=== PATIENT | male | born 1955 | race Caucasian/White ===

== ENCOUNTER 2022-02-20 13:51 | Inpatient (IN) | payer MEDICARE ==
[~2022-02-20] VITALS: Ht 180.3 cm; Wt 97.5 kg
[2022-02-20 15:55] LABS: BASOPHILS ABSOLUTE AUTO 0.03 K/mm3 (0.00-0.23); BASOPHILS PERCENT AUTO 0 % (0-2); EOSINOPHILS ABSOLUTE AUTO 0.26 K/mm3 (0.00-0.68); EOSINOPHILS PERCENT AUTO 3 % (0-6); Hematocrit 50.9 % (37.0-53.0); Hemoglobin 17.4 g/dL (13.5-17.5); IMMATURE GRAN ABSOLUTE AUTO 0.02 K/mm3 (0.00-0.10); IMMATURE GRAN PERCENT AUTO 0 % (0-1); LYMPHOCYTES ABSOLUTE AUTO 0.52 K/mm3 (0.84-5.20); LYMPHOCYTES PERCENT AUTO 6 % (21-46); MONOCYTES ABSOLUTE AUTO 0.89 K/mm3 (0.16-1.47); MONOCYTES PERCENT AUTO 10 % (4-13); Mean Corpuscular HGB 31.1 pg (26.0-34.0); Mean Corpuscular HGB Conc 34.2 g/dL (31.5-36.5); Mean Corpuscular Volume 91 fL (80-100); Mean Platelet Volume 9.2 fL (9.1-12.4); NEUTROPHILS ABSOLUTE AUTO 6.99 K/mm3 (1.96-9.15); NEUTROPHILS PERCENT AUTO 80 % (41-73); Platelet Count 161 K/mm3 (150-400); RDW Coefficient Variation 13.5 % (11.7-14.2); RDW Standard Deviation 45.8 fL (35.1-46.3); Red Blood Cell Count 5.59 M/mm3 (4.30-5.90); White Blood Cell Count 8.71 K/mm3 (4.00-11.30)
[2022-02-20 16:24] LABS: Albumin/Globulin Ratio 1.2 (0.8-1.8); Bilirubin, Total 1.5 mg/dL (0.1-1.0); Bun/Creatinine Ratio 17.1 (12.0-20.0); C-Reactive Protein, High Sens. 41.9 mg/L (0.000-3.000); Calcium, Blood 9.3 mg/dL (8.5-10.1); Creatinine, Blood 0.7 mg/dL (0.60-1.20); Globulin, Blood 3.3 g/dL (2.2-4.0); Potassium, Blood 3.9 mmol/L (3.5-5.5); Total Protein, Blood 7.3 g/dL (6.4-8.2)
[2022-02-20] MEDS ORDERED: GLYDO6 M2 MM (17:05)
[2022-02-20] MEDS ORDERED: FLOVENT HFA12 GM INH (22:08)
[2022-02-20] MEDS ORDERED: Tessalon200 MG PO (22:09)
[2022-02-20] MEDS ORDERED: RABE20 PO (22:09)
--- NOTE | 2022-02-21 00:18 | NUR ---
PATIENT ARRIVED TO MED FLOOR FROM ER SHORTLY AFTER SHIFT CHANGE. PATIENT IS ADMITTED FOR EPIGLOTITIS. HE IS UNABLE TO SWALLOW SPIT IN HIS MOUTH AND SUCTION IS HOOKED UP IN ROOM FOR PAITNET TO USE. HE HAS LR RUNNIING AT 100ML/HR. PATIENT IS INDEPENDANT IN ROOM AND ABLE TO MAKE HIS NEEDS KNOWN. HIS PULSE IS SLIGHTLY TACHY AT 98 TO 103. HE IS NPO AND SAYS SPOKE TO ENT WHILE HE WAS IN THE ER AND SHE WILL COME SEE HIM IN THE AM. SPOUSE ACCOMPANIED PATIENT TO ROOM AND ASSISTED IN ANSWERING HISTORY QUESTIONS FOR PATIENT. PATIENT WAS GIVEN TORADOL 30MG/IV ZOFRAN 4MG IV, AND HURRICANE GEL FOR HIS SORE THROAT. HE IS CURRENTLY RESTING COMFORTABLY WITH HOB AT 90 DEGREES. HE HAS WATER AT BEDSIDE THAT HE SWISHES HIS MOUTH OUT AND USES SUCTION TO REMOV ORDER FOR CONTINUOUS SAT MONITOR TO HELP IN MONITORING PATIENT INCASE THROAT CLOSES EVEN MORE.
[2022-02-21 06:42] LABS: BASOPHILS ABSOLUTE AUTO 0.01 K/mm3 (0.00-0.23); BASOPHILS PERCENT AUTO 0 % (0-2); EOSINOPHILS PERCENT AUTO 0 % (0-6); Hemoglobin 16.4 g/dL (13.5-17.5); IMMATURE GRAN ABSOLUTE AUTO 0.03 K/mm3 (0.00-0.10); IMMATURE GRAN PERCENT AUTO 0 % (0-1); LYMPHOCYTES ABSOLUTE AUTO 0.35 K/mm3 (0.84-5.20); LYMPHOCYTES PERCENT AUTO 5 % (21-46); MONOCYTES ABSOLUTE AUTO 0.33 K/mm3 (0.16-1.47); MONOCYTES PERCENT AUTO 4 % (4-13); Mean Corpuscular HGB 31.7 pg (26.0-34.0); Mean Corpuscular HGB Conc 34.2 g/dL (31.5-36.5); Mean Corpuscular Volume 93 fL (80-100); Mean Platelet Volume 9.5 fL (9.1-12.4); NEUTROPHILS ABSOLUTE AUTO 6.97 K/mm3 (1.96-9.15); NEUTROPHILS PERCENT AUTO 91 % (41-73); Platelet Count 135 K/mm3 (150-400); RDW Coefficient Variation 13.2 % (11.7-14.2); RDW Standard Deviation 45.3 fL (35.1-46.3); Red Blood Cell Count 5.18 M/mm3 (4.30-5.90); White Blood Cell Count 7.69 K/mm3 (4.00-11.30)
[2022-02-21 06:49] LABS: Bun/Creatinine Ratio 22.2 (12.0-20.0); Calcium, Blood 8.7 mg/dL (8.5-10.1); Creatinine, Blood 0.63 mg/dL (0.60-1.20); Potassium, Blood 4.3 mmol/L (3.5-5.5)
[2022-02-21 13:01] LABS: Albumin, Blood 3.4 g/dL (3.4-5.0); Bilirubin, Direct 0.4 mg/dL (0.0-0.3); Bilirubin, Indirect 0.8 mg/dL (0.1-0.7); Bilirubin, Total 1.2 mg/dL (0.1-1.0); Globulin, Blood 3.4 g/dL (2.2-4.0); Total Protein, Blood 6.8 g/dL (6.4-8.2)
--- NOTE | 2022-02-21 17:53 | NUR ---
SHIFT SUMMARY- PT HAS IMPROVED T/O THE SHIFT ABLE TO CONSUME FULL LIQUIDS FOR DINNER THIS EVENING. THE PT IS USING MENTHOL LOZENGES TO HELP WITH THE DISCOMFORT PRIOR TO MEALS. PT SEEMS TO BE ABLE TO SWALLOW PILLS WITH LITTLE DIFFICULTY. PLAN IS FOR THE PT TO CONTINUE RECIEVING IV STEROIDS AND ABX T/O THE NIGHT WELL THE DIFLUCAN AND POSSIBLE DC TOMORROW MORNING IF THE PT CONTINUES TO IMPROVE. PT AND SPOUSE ARE AWARE OF THE PLAN AND AGREE WITH THE CURRENT PLAN OF CARE. PT ALERT AND ORIENTED, INDEPENDENT IN THE ROOM, [facility] (HEARING AIDS AT THE BEDSIDE). PT SPOUSE PRESENT AT THE BEDSIDE NOW AND THE PT IS EATING HIS DINNER TRAY OF FULL LIQUIDS. NO S&S OF DISTRESS WILL CTM AND PASS ON TO NIGHT RN IN BEDSIDE REPORT.
--- NOTE | 2022-02-22 06:05 | NUR ---
SHIFT SUMMARY NO ACUTE CHANGES TO REPORT THIS SHIFT, PT HAS RESTED MOST OF THE SHIFT. PT HAS NOT HAD ANY ISSUES WITH SWALLOWING THIS SHIFT. HE STILL REPORTS THROAT IRRIATION, HOWEVER, NO COMPLAINTS OF SOB, OR DIFFICULTY BREATHING. IV ANTIBIOTICS PER ORDERS. PT HAS BEEN INDEPENDENT IN THE ROOM. PLAN FOR DC TODAY. BED IN LOWEST POSITON, CALL LIGHT WITHIN REACH.
[2022-02-22] MEDS ORDERED: Diflucan100 MG PO (10:30)
[2022-02-22] MEDS ORDERED: AMOCLA875 PO (10:30)
--- NOTE | 2022-02-22 12:57 | NUR ---
LATE ENTRY/DC HOME RECEIVED DC ORDERS. WRITTEN & VERBAL DC INSTRUCTIONS GIVEN TO PT AND HIS . NEW SCRIPTS FAXED TO [facility] PER PT REQUEST. PIV DC'D WITH CATH TIP INTACT. NO REDNESS OR SWELLING NOTED. PT AMBULATED SELF OUT WITH ALL PERSONAL BELONGINGS ACCOMPANIED BY .
== END 2022-02-22 11:28 | disposition home or self-care (01) | DRG 153 ==
LOC: ER 13:51 → MEDS 19:53
PROVIDERS: Otolaryngology; Physician Assistant; ADMIT Family Medicine
DX: J04.30 Supraglottitis, unspecified, without obstruction (principal); B37.0 Candidal stomatitis; B37.89 Other sites of candidiasis; F10.20 Alcohol dependence, uncomplicated; K21.9 Gastro-esophageal reflux disease without esophagitis; E86.0 Dehydration; J02.9 Acute pharyngitis, unspecified; Z87.891 Personal history of nicotine dependence; Z90.49 Acquired absence of other specified parts of digestive tract; Z79.899 Other long term (current) drug therapy; Z79.52 Long term (current) use of systemic steroids
CPT/HCPCS: 36415; 70491; 80048; 80053; 80076; 83605; 85025; 86141; 86308; 87040; 94762; 96361; 96365; 96374; 96375; 99285-25; A9270; C9113; J0295; J1100; J1650; J1885; J2405; J7050; J7120; Q9967